=== PATIENT | female | born 2000 | race Hispanic/Latino ===

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

== ENCOUNTER 2020-02-15 13:00 | Observation (INO) | payer OTHER, MEDICAID ==
[~2020-02-15] VITALS: Ht 152.4 cm; Wt 80.3 kg
[2020-02-15] MEDS ORDERED: PHARMACY COMMUNICATION MISC SCH (13:15)
[2020-02-15] MEDS ORDERED: CELESTONE SOLUSPAN 6 MG/ML 5ML VIAL IM SCH (13:30)
== END 2020-02-15 14:35 | disposition home or self-care (01) ==
LOC: LDH 13:00
PROVIDERS: ADMIT Obstetrics & Gynecology; ATTEND Obstetrics & Gynecology
DX: Z34.93 Encounter for supervision of normal pregnancy, unspecified, third trimester (principal); Z3A.32 32 weeks gestation of pregnancy
CPT/HCPCS: G0378; J0702; 96372

== ENCOUNTER 2020-02-16 13:50 | Observation (INO) | payer OTHER, MEDICAID ==
[~2020-02-16] VITALS: Ht 152.4 cm; Wt 80.3 kg
[2020-02-16] MEDS ORDERED: CELESTONE SOLUSPAN 6 MG/ML 5ML VIAL IM SCH (14:30)
== END 2020-02-16 14:30 | disposition home or self-care (01) ==
LOC: WSO 13:50 → LDH 14:05
PROVIDERS: ADMIT Obstetrics & Gynecology; ATTEND Obstetrics & Gynecology
DX: O26.899 Other specified pregnancy related conditions, unspecified trimester (principal); Z3A.00 Weeks of gestation of pregnancy not specified
CPT/HCPCS: 96372; G0378

== ENCOUNTER 2021-01-01 21:16 | Emergency (ER) | payer BC, MEDICAID ==
[2021-01-01] MEDS ORDERED: KETOROLAC 60 MG VIAL (30MG/ML) ONE (22:29)
== END 2021-01-01 22:50 | disposition home or self-care (01) ==
LOC: EDH 21:16
DX: S93.491A Sprain of other ligament of right ankle, initial encounter (principal); S93.611A Sprain of tarsal ligament of right foot, initial encounter; X50.1XXA Overexertion from prolonged static or awkward postures, initial encounter; Y93.E9 Activity, other interior property and clothing maintenance; Y92.89 Other specified places as the place of occurrence of the external cause; Y99.8 Other external cause status
CPT/HCPCS: 73610; 73630; 96372; 99284; J1885

== ENCOUNTER 2022-03-04 07:15 | Emergency (ER) | payer BC, MEDICAID ==
[~2022-03-04] VITALS: Ht 152.4 cm; Wt 72.6 kg
[2022-03-04] MEDS ORDERED: FLUT16H NASAL (08:42)
[2022-03-04] MEDS ORDERED: LORA10TA7 PO (08:42)
[2022-03-04 08:50] VITALS: BP 120/72
== END 2022-03-04 08:59 | disposition home or self-care (01) ==
LOC: EDH 07:15
DX: U07.1 COVID-19 (principal)
CPT/HCPCS: 87635; 87880; 99283; C9803